=== PATIENT | female | born 1960 | race Caucasian/White ===

== ENCOUNTER 2025-01-26 13:48 | Outpatient (AMB) | payer OTHER, SELFPAY ==
--- NOTE | 2025-01-26 14:03 | A.OFFVIS_ITS ---
Intake Visit Reasons: hx of recurrent kidney stones Intake Note: New Patient presents for initial visit for kidney stones Urology Medications: none Blood Thinner: none Risk Control Specialist Required: No Accompanied by: Unknown Allergies No Known Allergies Allergy (Verified 01/26/25 15:18) Medication List - Last Reconciled 01/26/25 by DILCIA Rizzo- albuterol sulfate 90 mcg/actuation (Ventolin HFA) inhalation albuterol sulfate mg inhalation diazepam mg PO lidocaine 5% 1 patch topical DAILY meloxicam 15 mg PO DAILY mirtazapine 45 mg PO BEDTIME nicotine 1 patch topical DAILY quetiapine 100 mg PO BEDTIME rosuvastatin 20 mg PO BEDTIME tiotropium-olodaterol 2.5-2.5 mcg/actuation (Stiolto Respimat) 2 puffs inhalation DAILY HPI Comments Details: Yeison is a pleasant 64-year-old female patient of Dr. Lockett who was accompanied by her son at today's office visit. She has a past medical history of osteoporosis nicotine dependence hyperlipidemia, insomnia, depression, nephrolithiasis, anxiety, and COPD. She presents to the office today as a new patient for her longstanding history of nephrolithiasis. In discussion with the patient today she reports a longstanding history of nephrolithiasis and previously following up with Dr. Davalos at [facility]. She reports previous surgical intervention for nephrolithiasis requiring ureteroscopy and stent placement. She currently denies any bothersome urinary issues and or any recent flank pain. However she does discuss her recent surgical history of bilateral wrist surgery as she has recently sustained a fall where she broke both of her wrists. In office urinalysis results reviewed with the patient today. Trace microscopic hematuria. When asked she does report a longstanding history of nicotine dependence. She denies urinary urgency, urinary frequency, incontinence, nocturia, hematuria, dysuria, foul smelling urine, changes to urinary stream, flank pain, fever, and or chills. She is happy with her current voiding parameters. I discussed reasons for blood in the urine may include but are not limited to kidney stones, cancer in the urinary tract, kidney stone disease or inflammatory conditions of the urinary tract. I have discussed workup to include cystoscopy evaluation. She otherwise offers no other issues or concerns at this time. Plan A computed tomography CT scan will be scheduled to assess the current burden of the patient's nephrolithiasis, given her history of staghorn calculi. Depending on stone burden, further dietary modifications and potential Vitamin B6 supplementation may be advised. The patient's concurrent issues with skeletal fractures and tailbone injury remain secondary to the primary focus on nephrolithiasis management. Continued attention to adequate hydration and dietary modification with lemon juice will be reinforced as a preventive measure . Patient was informed and verbally consented to the use of an ambient scribe for clinic note documentation during this visit. Discussion Notes I spoke with the patient regarding the importance of assessing the current state of her kidney stones through a scheduled CT scan, especially due to her history of requiring surgical interventions. I emphasized the preventive role of increased water intake and lemon juice consumption as discussed, along with the potential role of Vitamin B6 supplementation based on CT results. I also addressed the need for possible future interventions dependent upon imaging findings. The patient expressed understanding of the proposed plan and agreed with the outlined approach. We discussed follow-up care and the importance of returning should symptoms escalate or change. [facility] Medical History (Updated 01/26/25 @ 15:45 [facility] Encounter for screening for osteoporosis Vitamin D deficiency, unspecified Nicotine dependence, unspecified, uncomplicated Disorder of the skin and subcutaneous tissue, unspecified Mixed hyperlipidemia Insomnia, unspecified Depression, unspecified Encounter for screening for malignant neoplasm of colon Low back pain, unspecified Calculus of kidney Encounter for screening mammogram for malignant neoplasm of breast Generalized anxiety disorder Encounter for screening for malignant neoplasm of cervix Chronic obstructive pulmonary disease, unspecified Review of Systems Const All systems reviewed & are unremarkable except as noted in HPI and below Physical Exam Const General: cooperative, comfortable, no acute distress, well developed, alert and awake Orientation/consciousness: patient oriented x3 Limitations: no limitations HEENT Head: Yes normal to inspection, Yes normocephalic and Yes atraumatic Ears: hearing grossly normal bilaterally Eyes General: appearance normal, both eyes and all related structures Neck Neck: Yes normal visual inspection and Yes trachea midline Chest Chest palpation & inspection: normal inspection of the chest Resp Effort & Inspection: normal respiratory effort and able to speak in complete sentences Cardio Rate: regular rate GI Inspection: Yes normal to inspection General: Yes no CVA tenderness Back/Spine/Pelvis Back: no CVA tenderness Skin General skin exam: no rashes or lesions noted Neuro General: patient oriented x3 Extrem General: Yes normal to inspection Psych Appearance: grossly normal and well kempt Mental Status: mental status grossly normal Speech and movement: Normal speech and movement present and Clear speech present Affect: normal affect Attitude: cooperative Thought process: Normal thought process present Thought content: Normal thought content present Insight: Fair insight present (Psych) Judgement: Fair judgement present (Psych) Results AMB Urinalysis, Automated UA Leukoctes 0 Saranya/uL Last Edit by WooMe on 01/26/25 14:37 UA Nitrite Last Edit by WooMe on 01/26/25 14:37 UA Urobilinogen 0.2 mg/dL Last Edit by WooMe on 01/26/25 14:37 UA Protein 15 mg/dL Last Edit by WooMe on 01/26/25 14:37 UA pH 6.0 Last Edit by WooMe on 01/26/25 14:37 UA Blood 10 Andi/uL Last Edit by WooMe on 01/26/25 14:37 UA Specific [place] 1.025 Last Edit by WooMe on 01/26/25 14:37 UA Ketone Last Edit by WooMe on 01/26/25 14:37 UA Bilirubin 0 mg/dL Last Edit by WooMe on 01/26/25 14:37 UA Glucose 0 mg/dL Last Edit by WooMe on 01/26/25 14:37 Results Reviewed Results Reviewed: Laboratory Last Values Urine pH (Auto) 6.0 01/26/25 14:32 Specific [place] (Auto) 1.025 01/26/25 14:32 Urine Protein (Auto) 15 mg/dL 01/26/25 14:32 Glucose (UA)(Auto) 0 mg/dL 01/26/25 14:32 Urine Blood (Auto) 10 Andi/uL 01/26/25 14:32 Urine Bilirubin (Auto) 0 mg/dL 01/26/25 14:32 Urine Urobilinogen (Auto) 0.2 mg/dL 01/26/25 14:32 Leukocyte Esterase (Auto) 0 Saranya/uL 01/26/25 14:32 Assessment & Plan Assessment & Plan (1) Microscopic hematuria: Code(s): R31.29 - Other microscopic hematuria Category: Medical (2) Nicotine dependence: Code(s): F17.200 - Nicotine dependence, unspecified, uncomplicated Category: Medical (3) Calculus of kidney: Code(s): N20.0 - Calculus of kidney Category: Medical Plan In office urinalysis results reviewed with the patient today; as noted above; will send for urine cytology. Will obtain CT urogram for further assessment evaluation. We discussed potential causes of microscopic hematuria as well as nephrolithiasis. We discussed potential near future metabolic workup with [facility] and labs. BUN and creatinine ordered for imaging. She currently denies any bothersome urinary issues. She reports be happy with current voiding parameters. Discussed signing medical release form to obtain previous urology records for continuity of care Follow-up in 1-3 months with imaging and labs; or sooner with any issues, concerns, and or questions. Orders: Orders AMB Urinalysis Automated Today Z13.9 - Encounter for screening, unspecified Urine Cytology Today R31.29 - Other microscopic hematuria Patient Instructions: The patient had an opportunity to ask questions regarding the treatment plan. All questions were answered. Physical exam, labs, and imaging were discussed and reviewed in detail. As well as risks, benefits, and discussion of treatment choices. No major barriers to understanding were identified. The patient expressed understanding and agreement with the above treatment plan. The patient was made aware they should contact our office by phone for worsening of their current condition, the appearance of new symptoms, or with any questio ns or concerns. Compliance is encouraged with any medications and follow up testing that is ordered. It is a privilege to be allowed the opportunity to participate in? your urological care.? Again, if you have any questions or concerns If you have any questions or concerns please do not hesitate to contact me. The office is [phone]. This note is constructed using voice recognition software. While every effort has been made to ensure accuracy platform operations director errors may have been included. Yours sincerely, Stephanie Vega, TECHNICAL SPEC-BC Coding Level of Care Code New Pt Level 3 (20237) Diagnoses Microscopic hematuria R31.29 Nicotine dependence F17.200 Calculus of kidney N20.0
--- OUTSIDE RECORDS SUMMARY | 2025-01-26 16:41 | XMS_ITS | Clinical Summary ---
Author Organization [facility] Address [address] [place] [address] Care Team Providers Care Wire Coiler Machine Operator Name Role Phone Nicki Godwin MD Primary Care Provider Unavailab le Surgical History Surgery Date Site/Laterality Comments OTHER SURGICAL HISTORY PROCEDURE: [place] CYSTO W/URETEROSCOPY W/LITHOTRIPSY TUBAL LIGATION PROCEDURE: HISTORICAL TUBAL LIGATION Medical History Medical History Date Comments Anemia DX:Anemia Anxiety DX:Anxiety Seizures (CMS/HCC V24, CMS/HCC V28) DX:Seizures (HCC) Calculus of kidney DX:Calculus o f kidney Family History Medical History Relation Name Comments Prostate cancer Father Alcohol/Drug Mother Relation Name Status Comments Brother Alive x1 Father Alive Mother Social History Tobacco Use Types Packs/Day Years Used Date Smoking Tobacco: Every Day Cigarettes Alcohol Use Standard Drinks/Week Comments No 0 (1 standard drink = 0.6 oz pur e alcohol) Comments Unknown Sex and Gender Information Value Date Recorded Sex Assigned at Not on file Legal Sex Female 6:51 PM EST Gender Identity Not on file Sexual Orientation Not on file Obstetrics History Plan of Treatment Health Maintenance Due Date Last Done Comments Breast Cancer Screening 1960 Pneumococcal Vaccine: 50+ Ye ars (1 of 2 - PCV) 1981 Pneumococcal Vaccine: Pediat rics (0 to 5 Years) and At-Risk Patients (6 to 64 Years) (1 of 2 - PCV) 1981 Cervical Cancer Screening: P ap Smear 1983 DTaP,Tdap,and Td Vaccines (2 - Td or Tdap) 01/05/2012 01/04/2002 Zoster Vaccines (1 of 2) 2012 Cholesterol Screening (Lipid Panel) 09/20/2022 Colorectal Cancer Screening: Colonoscopy 09/20/2022 Depression Screening 09/20/2022 HIV Screening 09/20/2022 Hepatitis C Screening 09/20/2022 Social Influencers of Health Screening 09/20/2022 COVID-19 Vaccine (2023-2 5 season) 2024 Influenza Vaccine (Season Ended) 2025 RSV Immunization Adult Patie nts (1 - 1-dose 75+ series) 2037 HIB Vaccines Aged Out No longer eligi ble based on patient's age to complete this topic HPV Vaccines Aged Out No longer eligi ble based on patient's age to complete this topic Hepatitis A Vaccines Aged Out No long er eligible based on patient's age to complete this topic Hepatitis B Vaccines Aged Out No long er eligible based on patient's age to complete this topic IPV Vaccines Aged Out No longer eligi ble based on patient's age to complete this topic MMR Vaccines Aged Out No longer eligi ble based on patient's age to complete this topic Meningococcal ACWY Vaccine Aged Out N o longer eligible based on patient's age to complete this topic Meningococcal B Vaccine Aged Out No l onger eligible based on patient's age to complete this topic RSV Immunization Patients Un pacheco 20 months Aged Out No longer eligible b ased on patient's age to complete this topic Varicella Vaccines Aged Out No longer eligible based on patient's age to complete this topic Care Teams Wire Coiler Machine Operator Relationship Specialty Start Date End Date Nicki Godwin MD PCP - General 08/27/07
== END 2025-01-26 14:57 | disposition home or self-care (01) ==
LOC: HO.HUSH 13:49
PROVIDERS: PCP Nurse Practitioner Primary Care; Visit Provider Nurse Practitioner Family
DX: R31.29 Other microscopic hematuria (principal); F17.200 Nicotine dependence, unspecified, uncomplicated; N20.0 Calculus of kidney; Z13.9 Encounter for screening, unspecified
CPT/HCPCS: 99203

== ENCOUNTER 2025-01-26 13:48 | Outpatient (REF) | payer OTHER, SELFPAY ==
[2025-01-26 16:42] LABS: Urine Cytology See Pathology rpt
--- OUTSIDE RECORDS SUMMARY | 2025-01-26 17:55 | XMS_ITS | Clinical Summary ---
Author Organization [facility] Address [address] [place] [address] Care Team Providers Care Buckle Stapler Name Role Phone Nicki Godwin MD Primary Care Provider Unavailab le Surgical History Surgery Date Site/Laterality Comments OTHER SURGICAL HISTORY PROCEDURE: [place] CYSTO W/URETEROSCOPY W/LITHOTRIPSY TUBAL LIGATION PROCEDURE: HISTORICAL [...] age to complete this topic Care Teams Buckle Stapler Relationship Specialty Start Date End Date Nicki Godwin MD PCP - General 08/27/07
== END 2025-01-26 13:49 | disposition home or self-care (01) ==
LOC: HO.LNP 13:48
PROVIDERS: PCP Nurse Practitioner Primary Care; Visit Provider Nurse Practitioner Family
DX: R31.29 Other microscopic hematuria (principal); F17.200 Nicotine dependence, unspecified, uncomplicated; N20.0 Calculus of kidney
CPT/HCPCS: 81003; 88112; 99202

== ENCOUNTER 2025-04-20 11:46 | Outpatient (AMB) | payer OTHER, SELFPAY ==
--- NOTE | 2025-04-20 11:55 | A.OFFVIS_ITS ---
Intake Visit Reasons: 3m/CT/labs(set) Intake Note: Patient presents today for follow up on: Kidney Stones and CT Scan Results Imaging Completed: 04/03/25 Urology Medications: none Blood Thinner: none Chemical Laboratory Chief Required: No Accompanied by: Son Allergies No Known Allergies Allergy (Verified 04/20/25 15:31) Medication List - Last Reconciled 04/20/25 by JOSE LUIS Rizzo albuterol sulfate 90 mcg/actuation (Ventolin HFA) inhalation albuterol sulfate mg inhalation diazepam mg PO estradiol 0.01%(0.1mg/gram) (Estrace) 1 g vaginal 3XW 90 days lidocaine 5% 1 patch topical DAILY meloxicam 15 mg PO DAILY mirtazapine 45 mg PO BEDTIME nicotine 1 patch topical DAILY quetiapine 100 mg PO BEDTIME rosuvastatin 20 mg PO BEDTIME sulfamethoxazole-trimethoprim 800-160 mg (Bactrim DS) 1 tab PO BID 7 days tiotropium-olodaterol 2.5-2.5 mcg/actuation (Stiolto Respimat) 2 puffs inhalation DAILY HPI Comments Details: Yeison is a pleasant 64-year-old female patient of Dr. Lockett who was accompanied by her son at today's office visit. She has a past medical history of osteoporosis nicotine dependence hyperlipidemia, insomnia, depression, nephrolithiasis, anxiety, and COPD. She presents to the office today for follo w-up. Of note, patient was seen approximately 3 months ago for a longstanding history of nephrolithiasis at which time a CT KUB was ordered for further assessment evaluation. These results were reviewed and communicated with the patient and her son today. Bilateral nephrolithiasis. No suspicious lesions are seen. No hydronephrosis. She does continue to report episodes of bilateral flank pain, urinary urgency, and urinary frequency. In office urinalysis results reviewed with the patient today 1+ leukocytes positive nitrates. We did discuss urinary tract infection as patient is experiencing lower urinary tract symptoms. She discusses her longstanding history of nephrolithiasis and previously following up with Dr. Davalos at [facility]. She denies any issues with constipation. She is not currently sexually active. We did discuss further workup of nephrolithiasis to include [facility] and labs. Patient also with a longstanding history of microscopic hematuria in the setting of nicotine dependence. Urine cytology results from last office visit were reviewed as noted and trended below: 02/10 Negative for high-grade urothelial carcinoma She denies gross/visible hematuria, dysuria, foul smelling urine, changes to urinary stream, fever, and or chills. I discussed reasons for blood in the urine may include but are not limited to kidney stones, cancer in the urinary tract, kidney stone disease or inflammatory conditions of the urinary tract. I have discussed workup to include cystoscopy evaluation. She otherwise offers no other issues or concerns at this time. [facility] Medical History Encounter for screening for osteoporosis Vitamin D deficiency, unspecified Nicotine dependence, unspecified, uncomplicated Disorder of the skin and subcutaneous tissue, unspecified Mixed hyperlipidemia Insomnia, unspecified Depression, unspecified Encounter for screening for malignant neoplasm of colon Low back pain, unspecified Calculus of kidney Encounter for screening mammogram for malignant neoplasm of breast Generalized anxiety disorder Encounter for screening for malignant neoplasm of cervix Chronic obstructive pulmonary disease, unspecified Review of Systems Const All systems reviewed & are unremarkable except as noted in HPI and below Physical Exam Const General: cooperative, comfortable, no acute distress, well developed, alert and awake Orientation/consciousness: patient oriented x3 Limitations: no limitations HEENT Head: Yes normal to inspection, Yes normocephalic and Yes atraumatic Ears: hearing grossly normal bilaterally Eyes General: appearance normal, both eyes and all related structures Neck Neck: Yes normal visual inspection and Yes trachea midline Chest Chest palpation & inspection: normal inspection of the chest Resp Effort & Inspection: normal respiratory effort and able to speak in complete sentences Cardio Rate: regular rate GI Inspection: Yes normal to inspection General: Yes no CVA tenderness Back/Spine/Pelvis Back: no CVA tenderness Skin General skin exam: no rashes or lesions noted Neuro General: patient oriented x3 Extrem General: Yes normal to inspection Psych Appearance: grossly normal and well kempt Mental Status: mental status grossly normal Speech and movement: Normal speech and movement present and Clear speech present Affect: normal affect Attitude: cooperative Thought process: Normal thought process present Thought content: Normal thought content present Insight: Fair insight present (Psych) Judgement: Fair judgement present (Psych) Office Procedures Post Void Residual Post Residual Void Post Void Residual (PVR): 0 [id number] Void Residual by ultrasound Results AMB Urinalysis, Automated UA Leukoctes 15 Saranya/uL Last Edit by Parth Padilla [facility] on 04/20/25 12:13 UA Nitrite Last Edit by [facility] on 04/20/25 12:13 UA Urobilinogen 0.2 mg/dL Last Edit by [facility] on 04/20/25 12:1 3 UA Protein 15 mg/dL Last Edit by [facility] on 04/20/25 12:13 UA pH 6.5 Last Edit by [facility] on 04/20/25 12:13 UA Blood 0 Andi/uL Last Edit by [facility] Pad[facility] on 04/20/25 12:13 UA Specific [place] 1.010 Last Edit by [facility] on 04/20/25 12: 13 UA Ketone Last Edit by [facility] on 04/20/25 12:13 UA Bilirubin 0 mg/dL Last Edit by [facility] on 04/20/25 12:13 UA Glucose 0 mg/dL Last Edit by [facility] Tamika [facility] on 04/20/25 12:13 Results Reviewed Results Reviewed: Laboratory Last Values Urine pH (Auto) 6.5 04/20/25 12:11 Specific [place] (Auto) 1.010 04/20/25 12:11 Urine Protein (Auto) 15 mg/dL 04/20/25 12:11 Glucose (UA)(Auto) 0 mg/dL 04/20/25 12:11 Urine Blood (Auto) 0 Andi/uL 04/20/25 12:11 Urine Bilirubin (Auto) 0 mg/dL 04/20/25 12:11 Urine Urobilinogen (Auto) 0.2 mg/dL 04/20/25 12:11 Leukocyte Esterase (Auto) 15 Saranya/uL 04/20/25 12:11 Assessment & Plan Assessment & Plan (1) Calculus of kidney: Code(s): N20.0 - Calculus of kidney Category: Medical (2) Microscopic hematuria: Code(s): R31.29 - Other microscopic hematuria Category: Medical (3) Urinary tract infection: Code(s): N39.0 - Urinary tract infection, site not specified Category: Medical (4) Nicotine dependence: Code(s): F17.200 - Nicotine dependence, unspecified, uncomplicated Category: Medical Plan In office urinalysis results reviewed with the patient today; will send for urine culture. We did discussed potential causes of urinary tract infection as well as nephrolithiasis; we discussed further treatment options and risks and benefits of these treatment options. Start Bactrim as discussed and prescribed Start Estrace cream as discussed and prescribed. Will obtain [facility] for further assessment evaluation. We did discussed worsening symptoms. Discussed UTI prevention with D mannose supplement, vitamin-C, increasing fluid intake, behavioral therapy with timed voiding, and perineal hygiene. We discussed importance of adequate hydration relation to nephrolithiasis, urinary tract infection, and overall health and well-being. All questions were answered. Follow-up in 3 months with [facility]; or sooner with any issues, concerns, and or questions. Orders: Orders AMB Urinalysis Automated Today Z13.9 - Encounter for screening, unspecified AMB Post Void Residual by ultrasound Today Z13.9 - Encounter for screening, unspecified URORISK Today N20.0 - Calculus of kidney, N39.0 - Urinary tract infection, site not specified Urine Culture Today N39.0 - Urinary tract infection, site not specified Medications: New sulfamethoxazole-trimethoprim 800-160 mg (Bactrim DS) 1 tab PO BID 14 tabs 0RF 7 days N31.9 - Neuromuscular dysfunction of bladder, unspecified estradiol 0.01%(0.1mg/gram) (Estrace) Apply a pea-sized amount to urethra daily x1 month and then 3 times per week thereafter 1 g vaginal 3XW 42.5 grams 3RF 90 days Patient Instructions: The patient had an opportunity to ask questions regarding the treatment plan. All questions were answered. Physical exam, labs, and imaging were discussed and reviewed in detail. As well as risks, benefits, and discussion of treatment choices. No major barriers to understanding were identified. The patient expressed understanding and agreement with the above treatment plan. The patient was made aware they should contact our office by phone for worsening of their current condition, the appearance of new symptoms, or with any questions or concerns. Compliance is encouraged with any medications and follow up testing that is ordered. It is a privilege to be allowed the opportunity to participate in? your urological care.? Again, if you have any questions or mervin rns If you have any questions or concerns please do not hesitate to contact me. The office is [phone]. This note is constructed using voice recognition software. While every effort has been made to ensure accuracy oxygen equipment aide errors may have been included. Yours sincerely, JOSE LUIS Rizzo Coding Level of Care Code Est Pt Level 4 (63647) Complex EM visit Add On G2211 Diagnoses Calculus of kidney N20.0 Microscopic hematuria R31.29 Urinary tract infection N39.0 Nicotine dependence F17.200 CPT Codes Post Residual Void - PVR CPT Code: 50848-Jobc Void Residual by ultrasound ([id number])
--- OUTSIDE RECORDS SUMMARY | 2025-04-20 12:26 | XMS_ITS | Clinical Summary ---
Author Organization [facility] Address [address] [place] [address] Care Team Providers Care Golf Course Superintendent Name Role Phone Nicki Godwin MD Primary Care Provider Unavailab le Surgical History Surgery Date Site/Laterality Comments OTHER SURGICAL HISTORY PROCEDURE: [place] CYSTO W/URETEROSCOPY W/LITHOTRIPSY TUBAL LIGATION PROCEDURE: HISTORICAL [...] age to complete this topic Care Teams Golf Course Superintendent Relationship Specialty Start Date End Date Nicki Godwin MD PCP - General 08/27/07
== END 2025-04-20 12:25 | disposition home or self-care (01) ==
LOC: HO.HUSH 11:47
PROVIDERS: PCP Nurse Practitioner Primary Care; Visit Provider Nurse Practitioner Family
DX: N20.0 Calculus of kidney (principal); R31.29 Other microscopic hematuria; N39.0 Urinary tract infection, site not specified; F17.200 Nicotine dependence, unspecified, uncomplicated; Z13.9 Encounter for screening, unspecified
CPT/HCPCS: 99214; G2211

== ENCOUNTER 2025-04-20 11:46 | Outpatient (REF) | payer OTHER, SELFPAY | END 2025-04-20 11:47 | disposition home or self-care (01) | LOC: HO.LNP 11:46 | PROVIDERS: PCP Nurse Practitioner Primary Care; Visit Provider Nurse Practitioner Family | DX: N20.0 Calculus of kidney (principal); F17.200 Nicotine dependence, unspecified, uncomplicated; N39.0 Urinary tract infection, site not specified; R31.29 Other microscopic hematuria | CPT/HCPCS: 51798; 81003; 87086; 87088; 87186; 99212 ==